=== PATIENT | female | born 1970 | race Caucasian/White ===

== ENCOUNTER 2017-06-12 11:09 | Inpatient (IN) | payer OTHER ==
[2017-06-12 13:28] VITALS: BMI 24.9
--- NOTE | 2017-06-12 15:31 | HP ---
COWS - Scale Resting Pulse: 0= [place] 80 or Below Sweatin= Chills/Flushing Restless Observation: 3= Extraneous Movement Pupil Size: 2= Moderately Dilated Bone or Joint Aches: 2= Severe Diffuse Aches Runny Nose/ Eye Tearin= Runny Nose/Eyes GI Upset > 30mins: 3= Vomiting/Diarrhea Tremor Observation: 2= Slight Tremor Visible Yawning Observation: 2= >3x During Session Anxiety or Irritability: 2=Irritable/Anxious Goose Flesh Skin: 0=Smooth Skin COWS Score: 19 Admission ROS BHS - HPI Chief Complaint: I NEED HELP TO STOP USING PERCOCET Allergies/Adverse Reactions: Allergies Allergy/AdvReac Type Severity Reaction Status Date / Time No Known Allergies Allergy Verified 06/12/17 15:10 History of Present Illness: THIS 46 YEARS OLD FEMALE WITH PERCOCET DEPENDENCE,SEEKING DETOX,LAST TREATMENT [facility] 04/14/11 TO 05/01/11 REHAB [place]ULTIPLE MEDICAL PROBLEM [place] 2014 ANGIOPLASTY WITH STENT 3 VESSELS FROM 2004 TO 2006 X3 S/P IMPLANT DEFIBRILLATOR IN 2006 S/P CABG 3 VESSELS IN 2009 [facility] ANXIETY AND DEPRESSION Exam Limitations: No Limitations - Ebola screening Have you traveled outside of the country in the last 21 days: No Have you had contact with anyone from an Ebola affected area: No Have you been sick,other than usual withdrawal symptoms: No Do you have a fever: No - Review of Systems Constitutional: Chills, Loss of Appetite, Malaise, Night Sweats, Changes in sleep EENT: reports: Tearing, Nose Congestion Respiratory: reports: No Symptoms reported Cardiac: reports: Other (OLD [place] X 3 IN 2204 S/P ANGIOPLASTY WITH STENT 2004 TO 2006 X 3 S/P IMPLNTED DEFIBRILLATOR IN 2006 S/P TRIPLE BY PASS GRAFT IN 2009) GI: reports: Diarrhea, Nausea, Vomiting, Abdominal cramping : reports: No Symptoms Reported Musculoskeletal: reports: Back Pain, Joint Pain, Muscle Pain Integumentary: reports: Dryness Endocrine: reports: No Symptoms Reported Hematology: reports: No Symptoms Reported Psychiatric: reports: Anxious, Depressed Other Systems: Reviewed and Negative Patient History - Patient Medical History Hx Asthma: No Hx Chronic Obstructive Pulmonary Disease (COPD): No Hx Cancer: No Hx Cardiac Disorders: Yes (defibrillator in 2006 and CABGx3 in 2009) Hx Congestive Heart Failure: No Hx Hypertension: Yes Hx Hypercholesterolemia: No HX Cerebrovascular Accident: No Hx Seizures: No Hx Dementia: No Hx Diabetes: No Hx Gastrointestinal Disorders: No Hx Liver Disease: No Hx Genitourinary Disorders: No Hx Sexually Transmitted Disorders: No Hx Renal Disease (ESRD): No Hx Thyroid Disease: No Hx Human Immunodeficiency Virus (HIV): No (LAST 2016 NEGATIVE) Hx Hepatitis C: No Hx Depression: Yes (pt states she is not in tx.) Hx Suicide Attempt: No Hx Bipolar Disorder: No Hx Schizophrenia: No Other Medical History: NO SUICIDAL,NO HOMICIDAL - Patient Surgical History Past Surgical History: Yes Hx Cardiac Surgery: Yes (angioplasty with stent x3 in 2006 defibrillator in 2006 CABG x 3 in 2009) Hx Section: Yes (x2 last in 2001) - PPD History Previous Implant?: Yes Documented Results: Negative w/o proof Implanted On Prior [facility] Admission?: No PPD to be Administered?: Yes - Reproductive History Patient is a Female of Child Bearing Age (11 -55 yrs old): Yes Patient : No - Smoking Cessation Smoking history: Former smoker Have you smoked in the past 12 months: No If you are a former smoker, when did you quit?: 2009 Hx Chewing Tobacco Use: No Initiated information on smoking cessation: No 'Breaking Loose' booklet given: 06/12/17 - Substance & Tx. History Hx Alcohol Use: No Hx Substance Use: No Substance Use Type: Opiates Hx Substance Use Treatment: Yes ([facility] IN 04/04/11 TO 05/01/11) - Substances Abused percocet Route: Oral Frequency: Daily Amount used: 15- 10/325mg pills Age of first use: 43 Date of Last Use: 06/10/17 Family Disease History - Family Disease History Family Disease History: Heart Disease: Mother (CABG ,DEFBRILLATOR), Other: Father (ALCHOL,DSA,) Admission Physical Exam BHS - Vital Signs Vital Signs: Vital Signs - 24 hr 06/12/17 13:26 Temperature 96.4 F L Pulse Rate 80 Respiratory 20 Rate Blood Pressure 122/86 - Physical General Appearance: Yes: Moderate Distress, Tremorous, Irritable, Sweating, Anxious HEENTM: Yes: Normal ENT Inspection, [place], Pharynx Normal Respiratory: Yes: Lungs Clear, No Respiratory Distress, Respiratory Distress Neck: Yes: Within Normal Limits, Supple, Trachea in good position Breast: Yes: Breast Exam Deferred Cardiology: Yes: Within Normal Limits, Regular Rhythm, Regular Rate, S1, S2, Surgical Scar (MIDSTERNAL KELOID S/P CABG TRIPLE BY PASS S/P ANGIOPLASTY WITH STENT), Other Abdominal: Yes: Within Normal Limits, Normal Bowel Sounds, Non Tender, Soft Genitourinary: Yes: Within Normal Limits Back: Yes: Normal Inspection, Muscle Spasm Musculoskeletal: Yes: full range of Motion, Back pain, Muscle Pain Extremities: Yes: Tremors Neurological: Yes: emergency veterinary assistant II-XII NML intact, Fully Oriented, Alert, Motor Strength 5/5 Integumentary: Yes: Dry (S/P IMPLANTED DEFRILLATOR IN LEFT UPPER CHEST WALL) Lymphatic: Yes: Within Normal Limits - Diagnostic (1) Opioid dependence with withdrawal Current Visit: Yes Status: Acute (2) CAD (coronary artery disease) of artery bypass graft Current Visit: Yes Status: Acute (3) CAD S/P percutaneous coronary angioplasty Current Visit: Yes Status: Acute (4) Implantable cardioverter-defibrillator (ICD) in situ Current Visit: Yes Status: Acute (5) Insomnia secondary to depression with anxiety Current Visit: Yes Status: Acute Cleared for Admission [facility] - Detox or Rehab [facility] Level of Care: Medically Managed Detox Regimen/Protocol: Methadone [facility] Breath Alcohol Content Breath Alcohol Content: 0 Urine Pregancy Test - Result Urine Test Results: Negative- NO Line Present Urine Drug Screen - Results Drug Screen Negative: No Urine Drug Screen Results: OXY-Oxycodone
[2017-06-12] MEDS ORDERED: LOPERAMIDE HCL 2 MG CAPSULE PO PRN (15:46)
[2017-06-12] MEDS ORDERED: MAGNESIUM HYDROX 2400MG/30ML ORAL SUSPENSION 30 ML CUP PO PRN (15:46)
[2017-06-12] MEDS ORDERED: guaiFENesin/D-METHORPHAN HB 10 ML UNIT-DOSE CUPS PO PRN (15:46)
[2017-06-12] MEDS ORDERED: ACETAMINOPHEN 325 MG TABLET (FP) PO PRN (15:46)
[2017-06-12] MEDS ORDERED: MAG HYDROX/AL HYDROX/SIMETH 30 ML UNIT-DOSE CUP PO PRN (15:46)
[2017-06-12] MEDS ORDERED: MENTHOL/PHENOL 1 EACH UD MM PRN (15:46)
[2017-06-12] MEDS ORDERED: diphenhydrAMINE HCL 50 MG CAPSULE PO PRN (15:46)
[2017-06-12] MEDS ORDERED: IBUPROFEN 400 MG TABLET (FP) PO PRN (15:46)
[2017-06-12] MEDS ORDERED: P-EPHED 60MG/TRIPROLIDI 2.5MG TABLET PO PRN (15:46)
[2017-06-12] MEDS ORDERED: MAGNESIUM CITRATE 300 ML BOTTLE PO PRN (15:46)
[2017-06-12] MEDS ORDERED: METHADONE HCL 10 MG TABLET (FOR DETOX USE ONLY) PO ONE ×2 (17:45→23:00)
[2017-06-12] MEDS: diazePAM 5 MG TABLET PO PRN ×2 (18:01→22:20)
[2017-06-12] MEDS: SPIRONOLACTONE 25 MG TABLET (FP) PO SCH (18:01)
[2017-06-12] MEDS: ASPIRIN 81 MG CHEWABLE TABLETS PO SCH (18:02)
[2017-06-12] MEDS: hydrOXYzine PAMOATE 25 MG CAPSULE (FP) PO PRN (18:43)
[2017-06-12] MEDS: AMIODARONE HCL 200 MG TABLET (FP) PO SCH (18:59)
[2017-06-12] MEDS: THIAMINE HCL 100 MG TABLET (FP) PO SCH (22:18)
[2017-06-12] MEDS: CARVEDILOL 3.125 MG TABLET (FP) PO SCH (22:18)
[2017-06-12 23:11] LABS: URINE APPEARANCE SLCLOUDY; URINE BILIRUBIN NEGATIVE (NEGATIVE); URINE BLOOD NEGATIVE (NEGATIVE); URINE COLOR YELLOW; URINE GLUCOSE (UA) NEGATIVE (NEGATIVE); URINE KETONE TRACE (NEGATIVE); URINE NITRITE NEGATIVE (NEGATIVE); URINE PROTEIN NEGATIVE (NEGATIVE); URINE UROBILINOGEN NEGATIVE mg/dL (0.2-1.0)
[2017-06-13] MEDS ORDERED: METHADONE HCL 10 MG TABLET (FOR DETOX USE ONLY) PO ONE (10:00)
[2017-06-13 10:10] LABS: URINE LEUK ESTERASE Negative (NEGATIVE)
[2017-06-13 10:15] LABS: ALBUMIN 3.4 g/dl (3.4-5.0); ANION GAP 7 (8-16); CALCIUM 9.1 mg/dL (8.5-10.1); CO2 29 mmol/L (21-32); GLUCOSE,RANDOM 86 mg/dL (74-106); MCH 28.1 pg (25.7-33.7); MCHC 31.4 g/dl (32.0-36.0); MEAN CELL VOLUME 89.5 fl (80-96); MEAN PLT VOLUME 10.7 fl (7.5-11.1); PLATELET COUNT 139 K/MM3 (134-434); RDW 13.3 % (11.6-15.6); WHITE BLOOD COUNT 5.5 K/mm3 (4.0-10.0)
[2017-06-13 10:18] LABS: ALK PHOS 50 U/L (45-117); BILIRUBIN,TOTAL 0.9 mg/dL (0.2-1.0); CREATININE 0.8 mg/dL (0.55-1.02); SGOT/AST 8 U/L (15-37); SGPT/ALT 16 U/L (12-78); TOT PROT 7.2 g/dl (6.4-8.2)
[2017-06-13] MEDS: SPIRONOLACTONE 25 MG TABLET (FP) PO SCH (10:29)
[2017-06-13] MEDS: AMIODARONE HCL 200 MG TABLET (FP) PO SCH (10:29)
[2017-06-13] MEDS: CARVEDILOL 3.125 MG TABLET (FP) PO SCH ×2 (10:29→22:18)
[2017-06-13] MEDS: ASPIRIN 81 MG CHEWABLE TABLETS PO SCH (10:29)
[2017-06-13] MEDS: PRENATAL VITAMINS W/ FOLIC ACID TABLET (FP) PO SCH (10:30)
[2017-06-13] MEDS: diazePAM 5 MG TABLET PO PRN ×2 (10:31→22:18)
--- NOTE | 2017-06-13 11:03 | PN ---
BHS COWS - Scale Resting Pulse: 1= [place] 81-100 Sweatin= Chills/Flushing Restless Observation: 3= Extraneous Movement Pupil Size: 1= Pupils >than Normal Bone or Joint Aches: 2= Severe Diffuse Aches Runny Nose/ Eye Tearin= Runny Nose/Eyes GI Upset > 30mins: 2= Nausea/Diarrhea Tremor Observation of Outstretched Hands: 2= Slight Tremor Visible Yawning Observation: 1= 1-2x During Session Anxiety or Irritability: 2=Irritable/Anxious Goose Flesh Skin: 0=Smooth Skin COWS Score: 17 BHS Progress Note (SOAP) Subjective: ALERT,IRRITABLE,ANXIOUS,PAIN IN THE BODY AND BACK,INTERRUPTED SLEEP Objective: 06/13/17 11:02 Vital Signs Temperature 97.7 F 06/13/17 10:09 Pulse Rate 89 06/13/17 10:09 Respiratory Rate 18 06/13/17 10:09 Blood Pressure 98/53 06/13/17 10:09 O2 Sat by Pulse Oximetry (%) Laboratory Last Values WBC 5.5 K/mm3 (4.0-10.0) 06/13/17 07:00 RBC 4.97 M/mm3 (3.60-5.2) 06/13/17 07:00 Hgb 14.0 GM/dL (10.7-15.3) 06/13/17 07:00 Hct 44.5 % (32.4-45.2) 06/13/17 07:00 MCV 89.5 fl (80-96) 06/13/17 07:00 MCH 28.1 pg (25.7-33.7) 06/13/17 07:00 MCHC 31.4 g/dl (32.0-36.0) L 06/13/17 07:00 RDW 13.3 % (11.6-15.6) 06/13/17 07:00 Plt Count 139 K/MM3 (134-434) 06/13/17 07:00 MPV 10.7 fl (7.5-11.1) 06/13/17 07:00 Sodium 140 mmol/L (136-145) 06/13/17 07:00 Potassium 4.3 mmol/L (3.5-5.1) 06/13/17 07:00 Chloride 104 mmol/L (98-107) 06/13/17 07:00 Carbon Dioxide 29 mmol/L (21-32) 06/13/17 07:00 Anion Gap 7 (8-16) L 06/13/17 07:00 BUN 11 mg/dL (7-18) 06/13/17 07:00 Creatinine 0.8 mg/dL (0.55-1.02) 06/13/17 07:00 Creat Clearance w eGFR > 60 (>60) 06/13/17 07:00 Random Glucose 86 mg/dL (74-106) 06/13/17 07:00 Calcium 9.1 mg/dL (8.5-10.1) 06/13/17 07:00 Total Bilirubin 0.9 mg/dL (0.2-1.0) 06/13/17 07:00 AST 8 U/L (15-37) L 06/13/17 07:00 ALT 16 U/L (12-78) 06/13/17 07:00 Alkaline Phosphatase 50 U/L (45-117) 06/13/17 07:00 Total Protein 7.2 g/dl (6.4-8.2) 06/13/17 07:00 Albumin 3.4 g/dl (3.4-5.0) 06/13/17 07:00 Urine Color Yellow 06/12/17 23:00 Urine Appearance Slcloudy 06/12/17 23:00 Urine pH 6.0 (5.0-8.0) 06/12/17 23:00 Ur Specific [place] 1.020 (1.005-1.025) 06/12/17 23:00 Urine Protein Negative (NEGATIVE) 06/12/17 23:00 Urine Glucose (UA) Negative (NEGATIVE) 06/12/17 23:00 Urine Ketones Trace (NEGATIVE) H 06/12/17 23:00 Urine Blood Negative (NEGATIVE) 06/12/17 23:00 Urine Nitrite Negative (NEGATIVE) 06/12/17 23:00 Urine Bilirubin Negative (NEGATIVE) 06/12/17 23:00 Urine Urobilinogen Negative mg/dL (0.2-1.0) 06/12/17 23:00 Ur Leukocyte Esterase Negative (NEGATIVE) 06/12/17 23:00 Assessment: 06/13/17 11:03 WITHDRAWAL SYMPTOM Plan: CONTINUE DETOX,ANTIHYPERTENSIVE MEDICATIONS ON HOLD CLOSE MONITORING,VITAL SIGN MONITORING
--- NOTE | 2017-06-13 13:58 | CONSULT ---
[facility] Psychiatric Consult - Data Date of interview: 06/13/17 Admission source: [facility] Identifying data: " I told them that I don't want to see psychiatrists.Leave me alone." Patient refused psychiatric interview.RN Qian Deluna is made aware.
[2017-06-13] MEDS: THIAMINE HCL 100 MG TABLET (FP) PO SCH (22:18)
[2017-06-13] MEDS: hydrOXYzine PAMOATE 25 MG CAPSULE (FP) PO PRN (22:20)
[2017-06-14] MEDS ORDERED: METHADONE HCL 5 MG TABLET (FOR DETOX USE ONLY) PO ONE (10:00)
[2017-06-14] MEDS: diazePAM 5 MG TABLET PO PRN ×2 (10:10→22:36)
[2017-06-14] MEDS: PRENATAL VITAMINS W/ FOLIC ACID TABLET (FP) PO SCH (10:10)
[2017-06-14] MEDS: ASPIRIN 81 MG CHEWABLE TABLETS PO SCH (10:11)
[2017-06-14] MEDS: hydrOXYzine PAMOATE 25 MG CAPSULE (FP) PO PRN ×2 (10:11→22:38)
[2017-06-14] MEDS: CARVEDILOL 3.125 MG TABLET (FP) PO SCH ×2 (10:11→22:33)
[2017-06-14] MEDS: SPIRONOLACTONE 25 MG TABLET (FP) PO SCH (10:11)
[2017-06-14] MEDS: AMIODARONE HCL 200 MG TABLET (FP) PO SCH (10:11)
--- NOTE | 2017-06-14 10:47 | PN ---
BHS COWS - Scale Resting Pulse: 0= [place] 80 or Below Sweatin= Chills/Flushing Restless Observation: 3= Extraneous Movement Pupil Size: 1= Pupils >than Normal Bone or Joint Aches: 2= Severe Diffuse Aches Runny Nose/ Eye Tearin= Runny Nose/Eyes GI Upset > 30mins: 2= Nausea/Diarrhea Tremor Observation of Outstretched Hands: 2= Slight Tremor Visible Yawning Observation: 1= 1-2x During Session Anxiety or Irritability: 2=Irritable/Anxious Goose Flesh Skin: 0=Smooth Skin COWS Score: 16 S Progress Note (SOAP) Subjective: alert,irritable,anxious,interrupted sleep,tremor,pain in the body and back Objective: 06/14/17 10:46 Vital Signs Temperature 97.4 F L 06/14/17 06:20 Pulse Rate 72 06/14/17 06:20 Respiratory Rate 16 06/14/17 06:20 Blood Pressure 98/66 06/14/17 06:20 O2 Sat by Pulse Oximetry (%) 06/14/17 10:46 Laboratory Last Values WBC 5.5 K/mm3 (4.0-10.0) 06/13/17 07:00 RBC 4.97 M/mm3 (3.60-5.2) 06/13/17 07:00 Hgb 14.0 GM/dL (10.7-15.3) 06/13/17 07:00 Hct 44.5 % (32.4-45.2) 06/13/17 07:00 MCV 89.5 fl (80-96) 06/13/17 07:00 MCH 28.1 pg (25.7-33.7) 06/13/17 07:00 MCHC 31.4 g/dl (32.0-36.0) L 06/13/17 07:00 RDW 13.3 % (11.6-15.6) 06/13/17 07:00 Plt Count 139 K/MM3 (134-434) 06/13/17 07:00 MPV 10.7 fl (7.5-11.1) 06/13/17 07:00 Sodium 140 mmol/L (136-145) 06/13/17 07:00 Potassium 4.3 mmol/L (3.5-5.1) 06/13/17 07:00 Chloride 104 mmol/L (98-107) 06/13/17 07:00 Carbon Dioxide 29 mmol/L (21-32) 06/13/17 07:00 Anion Gap 7 (8-16) L 06/13/17 07:00 BUN 11 mg/dL (7-18) 06/13/17 07:00 Creatinine 0.8 mg/dL (0.55-1.02) 06/13/17 07:00 Creat Clearance w eGFR > 60 (>60) 06/13/17 07:00 Random Glucose 86 mg/dL (74-106) 06/13/17 07:00 Calcium 9.1 mg/dL (8.5-10.1) 06/13/17 07:00 Total Bilirubin 0.9 mg/dL (0.2-1.0) 06/13/17 07:00 AST 8 U/L (15-37) L 06/13/17 07:00 ALT 16 U/L (12-78) 06/13/17 07:00 Alkaline Phosphatase 50 U/L (45-117) 06/13/17 07:00 Total Protein 7.2 g/dl (6.4-8.2) 06/13/17 07:00 Albumin 3.4 g/dl (3.4-5.0) 06/13/17 07:00 Urine Color Yellow 06/12/17 23:00 Urine Appearance Slcloudy 06/12/17 23:00 Urine pH 6.0 (5.0-8.0) 06/12/17 23:00 Ur Specific [place] 1.020 (1.005-1.025) 06/12/17 23:00 Urine Protein Negative (NEGATIVE) 06/12/17 23:00 Urine Glucose (UA) Negative (NEGATIVE) 06/12/17 23:00 Urine Ketones Trace (NEGATIVE) H 06/12/17 23:00 Urine Blood Negative (NEGATIVE) 06/12/17 23:00 Urine Nitrite Negative (NEGATIVE) 06/12/17 23:00 Urine Bilirubin Negative (NEGATIVE) 06/12/17 23:00 Urine Urobilinogen Negative mg/dL (0.2-1.0) 06/12/17 23:00 Ur Leukocyte Esterase Negative (NEGATIVE) 06/12/17 23:00 RPR Titer Nonreactive (NONREACTIVE) 06/13/17 07:00 Assessment: 06/14/17 10:46 withdrawal symptom Plan: continue detox
--- NOTE | 2017-06-14 13:17 | EKG ---
Test Reason : Blood Pressure : / mmHG Vent. Rate : 082 BPM Atrial Rate : 082 BPM P-R Int : 182 ms QRS Dur : 138 ms QT Int : 424 ms P-R-T Axes : 057 -69 084 degrees QTc Int : 495 ms SINUS RHYTHM WITH OCCASIONAL AV dual-paced complexes LEFT AXIS DEVIATION NON-SPECIFIC INTRA-VENTRICULAR CONDUCTION BLOCK CANNOT RULE OUT SEPTAL INFARCT , AGE UNDETERMINED ABNORMAL ECG NO PREVIOUS ECGS AVAILABLE Confirmed by LUCY SANDY, NITHYA ([id number]) on 06/14/2017 1:16:49 PM Referred By: Confirmed By:NITHYA AYALA MD
[2017-06-14] MEDS: THIAMINE HCL 100 MG TABLET (FP) PO SCH (22:33)
--- NOTE | 2017-06-15 09:03 | PN ---
BHS Progress Note (SOAP) Subjective: alert,interrupted sleep,pain in the body and back,feel depressed Objective: 06/15/17 09:00 Vital Signs Temperature 98.1 F 06/15/17 06:00 Pulse Rate 75 06/15/17 06:00 Respiratory Rate 18 06/15/17 06:00 Blood Pressure 95/58 06/15/17 06:00 O2 Sat by Pulse Oximetry (%) Assessment: 06/15/17 09:00 withdrawal symptom Plan: continue detox
[2017-06-15] MEDS ORDERED: METHADONE HCL 5 MG TABLET (FOR DETOX USE ONLY) PO ONE (10:00)
[2017-06-15] MEDS: PRENATAL VITAMINS W/ FOLIC ACID TABLET (FP) PO SCH (10:28)
[2017-06-15] MEDS: SPIRONOLACTONE 25 MG TABLET (FP) PO SCH (10:28)
[2017-06-15] MEDS: ASPIRIN 81 MG CHEWABLE TABLETS PO SCH (10:28)
[2017-06-15] MEDS: diazePAM 5 MG TABLET PO PRN ×2 (10:28→14:32)
[2017-06-15] MEDS: CARVEDILOL 3.125 MG TABLET (FP) PO SCH ×2 (10:29→22:28)
[2017-06-15] MEDS: AMIODARONE HCL 200 MG TABLET (FP) PO SCH (10:29)
--- NOTE | 2017-06-15 14:44 | CONSULT ---
[facility] Psychiatric Consult - Data Date of interview: 06/15/17 Admission source: [facility] Identifying data: Readmission to [facility] for this 46 y/o female seeking detox treatment on for opiate dependence.Patient is in a common- law relationship X 17 years,a mother of six,domiciled,unemployed,disabled and supported on SSI benefits. Substance Abuse History: Discussed in this encounter.Patient confirmed. Smoking Cessation. Smoking history: Former smoker. Have you smoked in the past 12 months: No. If you are a former smoker, when did you quit?: 2009. Hx Chewing Tobacco Use: No. Initiated information on smoking cessation: No. ' Breaking Loose' booklet given: 06/12/17. - Substance & Tx. History. Hx Alcohol Use: No. Hx Substance Use: No. Substance Use Type: Opiates. Hx Substance Use Treatment: Yes ([facility] IN 04/04/11 TO 05/01/11). - Substances Abused. percocet. Route: Oral. Frequency: Daily. Amount used: 15- 10/ 325mg pills. Age of first use: 43. Date of Last Use: 06/10/17 Medical History: Serious medical co-morbidities : past history of myocardial infarction (2014),angioplasty with three stents (2006),implantation of defibrillator (2006),hypertension and two sections. Psychiatric History: Patient admits to a remote history of psychiatric hospitalization at [facility] years ago.Does not recall her psychiatric diagnosis." It happened so long ago." Ms Hector denies current OPD care." I used to go to the psychiatric clinic in [place] but I stopped years ago." Off psychotropic medications for months.Patient reports chronic insomnia and she requests " a low dose " of ambien at bedtime.No history of suicide attempts. Physical/Sexual Abuse/Trauma History: Patient denies. Additional Comment: Urine Drug Screen Results: OXY-Oxycodone.Noted. Mental Status Exam - Mental Status Exam Alert and Oriented to: Time, Place, Person Cognitive Function: Good Patient Appearance: Well Groomed Mood: Hopeful, Euthymic Affect: Appropriate, Normal Range Patient Behavior: Appropriate (friendly in this interview), Cooperative Speech Pattern: Clear, Appropriate Voice Loudness: Normal Thought Process: Intact, Goal Oriented Thought Disorder: Not Present Hallucinations: Denies Suicidal Ideation: Denies Homicidal Ideation: Denies Insight/Judgement: Fair Sleep: Poorly, Difficulty falling asleep Appetite: Good Muscle strength/Tone: Normal Gait/Station: Normal Psychiatric Findings - Problem List ([place] 1, 2,3) (1) Opioid dependence with withdrawal Current Visit: Yes Status: Acute (2) Implantable cardioverter-defibrillator (ICD) in situ Current Visit: Yes Status: Acute (3) CAD (coronary artery disease) of artery bypass graft Current Visit: Yes Status: Chronic (4) Insomnia Current Visit: Yes Status: Acute - Initial Treatment Plan Initial Treatment Plan: Psychoeducation.Detoxification in progress.Medication : ambien 5 mg po hs.Patient is made aware of parasomnias.She agrees with this careplan.Observation.
[2017-06-15] MEDS ORDERED: ZOLPIDEM TARTRATE 5 MG TABLET PO PRN (16:19)
[2017-06-15] MEDS: THIAMINE HCL 100 MG TABLET (FP) PO SCH (22:28)
[2017-06-16] MEDS ORDERED: METHADONE HCL 10 MG TABLET (FOR DETOX USE ONLY) PO ONE (10:00)
[2017-06-16] MEDS: SPIRONOLACTONE 25 MG TABLET (FP) PO SCH (10:29)
[2017-06-16] MEDS: ASPIRIN 81 MG CHEWABLE TABLETS PO SCH (10:29)
[2017-06-16] MEDS: PRENATAL VITAMINS W/ FOLIC ACID TABLET (FP) PO SCH (10:29)
[2017-06-16] MEDS: hydrOXYzine PAMOATE 25 MG CAPSULE (FP) PO PRN ×2 (10:30→22:26)
--- NOTE | 2017-06-16 10:54 | PN ---
S Progress Note (SOAP) Subjective: alert,irritable,anxious,interrupted sleep Objective: 06/16/17 10:53 Vital Signs Temperature 97.7 F 06/16/17 09:29 Pulse Rate 82 06/16/17 09:29 Respiratory Rate 20 06/16/17 09:29 Blood Pressure 109/61 06/16/17 09:29 O2 Sat by Pulse Oximetry (%) Assessment: 06/16/17 10:53 withdrawal symptom Plan: continue detox,discharge in am,psychiatric reevaluation for insomnia
--- NOTE | 2017-06-16 11:17 | PN ---
[facility] Progress Note Note: Psychiatry Attending's note : Approached by patient. Issue : refusal of zolpidem. Ms Hector expresses preference for seroquel. " I want a low dose of seroquel.No more than 25 mg." Sleep hygiene is re-discussed.Side effects/benefits of seroquel : reviewed. Patient is informed of risk for metabolic syndrome,oversedation and falls, cardiovascular adverse events and abnormal involuntary movements. Plan : Ambien is discontinued. Seroquel 25 mg po hs.Ordered. Will follow response.
[2017-06-16] MEDS: AMIODARONE HCL 200 MG TABLET (FP) PO SCH (11:29)
[2017-06-16] MEDS: CARVEDILOL 3.125 MG TABLET (FP) PO SCH ×2 (11:29→22:24)
[2017-06-16] MEDS ORDERED: QUEtiapine FUMARATE 25 MG TABLET (FP) PO SCH (22:00)
[2017-06-16] MEDS: THIAMINE HCL 100 MG TABLET (FP) PO SCH (22:24)
[2017-06-17] MEDS ORDERED: METHADONE HCL 5 MG TABLET (FOR DETOX USE ONLY) PO ONE (06:00)
--- NOTE | 2017-06-17 08:13 | DS ---
[facility] Detox Discharge Summary Admission Date: 06/12/17 Discharge Date: 06/17/17 - History Present History: Opioid Dependence Additional Comments: follow up with after care program as arrangement Pertinent Past History: coronary artery disease s/p by pass surgery coronary arterydisease s/p angioplasty with stent implantable icd cardioverter defibrillator in situ insomnia anxiety and depression - Physical Exam Results Vital Signs: Vital Signs Temperature 98.1 F 06/17/17 06:16 Pulse Rate 79 06/17/17 06:16 Respiratory Rate 18 06/17/17 06:16 Blood Pressure 106/50 06/17/17 06:16 O2 Sat by Pulse Oximetry (%) - Treatment Hospital Course: Detox Protocol Followed, Detoxed Safely, Responded well, Discharged Condition Good Patient has Accepted a Rehab Referral to: declined - Medication Discharge Medications: Ambulatory Orders Amiodarone HCl [Cordarone -] 200 mg PO DAILY 06/12/17 Aspirin [ASA -] 81 mg PO DAILY 06/12/17 Carvedilol [Coreg -] 3.125 mg PO BID 06/12/17 Spironolactone [Aldactone] 25 mg PO DAILY 06/12/17 - Diagnosis (1) Opioid dependence with withdrawal Current Visit: Yes Status: Acute (2) CAD (coronary artery disease) of artery bypass graft Current Visit: Yes Status: Chronic (3) CAD S/P percutaneous coronary angioplasty Current Visit: Yes Status: Acute (4) Implantable cardioverter-defibrillator (ICD) in situ Current Visit: Yes Status: Acute (5) Insomnia secondary to depression with anxiety Current Visit: Yes Status: Acute - AMA Did Patient Leave Against Medical Advice: No
[2017-06-17 10:28] VITALS: BP 117/75; PULSE 103; TEMP 98.6
[2017-06-17] MEDS ORDERED: ONDANSETRON *ODT* 4 MG TABLET SL PRN (11:36)
--- NOTE | 2017-06-17 11:38 | PN ---
[facility] Progress Note Note: addendum patient has nausea,vomiting,zofran 4 mgs sl ordered
--- NOTE | 2017-06-17 12:25 | PN ---
[facility] Progress Note Note: patient felt better,no vomiting,discharge in good condition,advise to go to er at [facility] if any problem arrangement made by counselor for transportation to bring patient's home
== END 2017-06-17 12:17 | disposition home or self-care (01) | DRG 773 ==
LOC: YASAS 11:09 → Y6N 17:13
PROVIDERS: ADMIT Internal Medicine; ATTEND Internal Medicine
PROC: HZ2ZZZZ Detoxification Services for Substance Abuse Treatment (ICD-10-PCS; principal; 2017-06-12)
DX: F11.23 Opioid dependence with withdrawal (principal); I25.810 Atherosclerosis of coronary artery bypass graft(s) without angina pectoris; I25.2 Old myocardial infarction; I10 Essential (primary) hypertension; G47.00 Insomnia, unspecified; Z95.810 Presence of automatic (implantable) cardiac defibrillator; Z87.891 Personal history of nicotine dependence; Z95.1 Presence of aortocoronary bypass graft
CPT/HCPCS: 36415; 80053; 81003; 85027; 86593; 93005; 93010